=== PATIENT | female | born 1950 | race Caucasian/White ===

== ENCOUNTER 2017-07-30 17:58 | Emergency (ER) | payer OTHER, MEDICARE ==
[~2017-07-30] VITALS: Ht 139.7 cm; Wt 86.2 kg
[~2017-07-30 17:58] MED LIST: ASPIR 8181 MG PO; ATENOLOL50 MG PO; COZAAR100 MG PO; HYDROCHLOROTHIA25 MG PO; K10 PO; MAC100 PO; METFORMIN ER500 M1 PO; NABUMETONE750 MG PO; OXYBUTYNIN CHLOR5 MG PO; SIMVASTATIN40 M1 PO
[2017-07-30 18:01] VITALS: Ht 139.7 cm; Wt 86.2 kg
[2017-07-30 18:54] VITALS: BP 167/103
== END 2017-07-30 18:55 | disposition home or self-care (01) ==
LOC: ED 17:58
DX: S29.012A Strain of muscle and tendon of back wall of thorax, initial encounter (principal); E11.9 Type 2 diabetes mellitus without complications; I10 Essential (primary) hypertension; E78.00 Pure hypercholesterolemia, unspecified; V43.92XA Unspecified car occupant injured in collision with other type car in traffic accident, initial encounter; Y93.89 Activity, other specified; Y92.89 Other specified places as the place of occurrence of the external cause; Y99.8 Other external cause status
CPT/HCPCS: Q0092